=== PATIENT | male | born 1975 | race Caucasian/White ===

== ENCOUNTER 2017-05-08 06:51 | Emergency (ER) | payer OTHER, SELFPAY ==
[2017-05-08 07:30] VITALS: BP 122/78; PULSE 79; RESP 16; TEMP 98.5; O2SAT 98
--- NOTE | 2017-05-08 08:46 | ED PDOC ---
HPI: General Adult Time Seen by Provider: 05/08/17 08:25 Chief Complaint (Nursing): ENT Problem Chief Complaint (Provider): Throat Pain History Per: Patient History/Exam Limitations: no limitations Onset/Duration Of Symptoms: Days (x 2) Current Symptoms Are (Timing): Still Present Additional Complaint(s): 42 year old male who presents to the ED complaining of throat pain, onset 2 days ago. Pain is on swallowing. Patient is concerned it may be cardiac. Denies fever, cough, SOB. PMD: none provided Past Medical History Reviewed: Historical Data, Nursing Documentation, Vital Signs Vital Signs: Last Vital Signs Temp 98.5 F 05/08/17 07:28 Pulse 79 05/08/17 07:28 Resp 16 05/08/17 07:28 BP 122/78 05/08/17 07:28 Pulse Ox 98 05/08/17 09:25 - Medical History PMH: No Chronic Diseases - Surgical History Other surgeries: Lipoma removal - Family History Family History: States: Unknown Family Hx - Social History Ex-Smoker (has not smoked in the last 12 months): Yes Alcohol: Social Drugs: Denies - Immunization History Hx Tetanus Toxoid Vaccination: No - Home Medications Home Medications: Ambulatory Orders Medication Instructions Recorded Naproxen [Naprosyn] 500 mg PO BID #20 tab 07/14/15 No Other Home Meds 07/14/15 tiZANidine [Zanaflex] 4 mg PO Q8H PRN #20 tab 07/14/15 traMADol [Ultram] 50 mg PO TID PRN #15 tab 07/14/15 Azithromycin [Zithromax] 250 mg PO DAILY #6 tab 05/08/17 - Allergies Allergies/Adverse Reactions: Allergies Allergy/AdvReac Type Severity Reaction Status Date / Time No Known Allergies Allergy Verified 05/08/17 07:28 Review of Systems ROS Statement: Except As Marked, All Systems Reviewed And Found Negative Constitutional: Negative for: Fever ENT: Positive for: Throat Pain (on swallowing) Respiratory: Negative for: Cough, Shortness of Breath Physical Exam - Reviewed Nursing Documentation Reviewed: Yes Vital Signs Reviewed: Yes - Physical Exam Appears: Positive for: Non-toxic, No Acute Distress Head Exam: Positive for: ATRAUMATIC, NORMOCEPHALIC Skin: Positive for: Normal Color, Warm, Dry Eye Exam: Positive for: EOMI, Normal appearance, PERRL ENT: Positive for: Pharyngeal Erythema. Negative for: Tonsillar Exudate, Other (deviation of uvula) Cardiovascular/Chest: Positive for: Regular Rate, Rhythm Respiratory: Positive for: Normal Breath Sounds (bilaterally) Gastrointestinal/Abdominal: Positive for: Normal Exam, Soft. Negative for: Tenderness Neurologic/Psych: Positive for: Alert, Oriented - Laboratory Results Result Diagrams: 05/08/17 08:55 - ECG O2 Sat by Pulse Oximetry: 98 (RA) Pulse Ox Interpretation: Normal Medical Decision Making Medical Decision Making: Time: 08:40 Initial Plan: --EKG --CMP --Lipid Panel --Strep group --Throat cx Strep group --results are negative. Scribe Attestation: Documented by Loyda Garrison, acting as a scribe for Gigi Lockhart MD Provider Scribe Attestation: All medical record entries made by the Scribe were at my direction and personally dictated by me. I have reviewed the chart and agree that the record accurately reflects my personal performance of the history, physical exam, medical decision making, and the department course for this patient. I have also personally directed, reviewed, and agree with the discharge instructions and disposition. Disposition - Clinical Impression Clinical Impression: Tonsillitis - Patient ED Disposition Is Patient to be Admitted: No Counseled Patient/Family Regarding: Studies Performed, Diagnosis, Need For Followup, Rx Given - Disposition Referrals: [facility] [Outside] Disposition: Routine/Home Disposition Time: 09:48 Condition: FAIR Prescriptions: Azithromycin [Zithromax] 250 mg PO DAILY #6 tab Instructions: Tonsillitis (ED) Forms: [employer] (Chinese)
[2017-05-08 09:18] LABS: ALB/GLOB RATIO 1.3 (1.0-2.1); ALBUMIN 4.1 g/dL (3.5-5.0); ALT/SGPT 50 U/L (21-72); AST/SGOT 23 U/L (17-59); BLOOD UREA NITROGEN 19 mg/dl (9-20); CALCIUM 8.8 mg/dL (8.4-10.2); GFR AFRICAN-AMERICAN > 60; GFR NON-AFRICAN AMERICAN > 60; HDL CHOLESTEROL 37 MG/DL (30-70)
[2017-05-08 09:29] LABS: LDL CHOLESTEROL 67 mg/dL (0-129)
--- NOTE | 2017-05-09 08:38 | CARD ---
APPROVED REPORT EKG Measurement Heart [id number] <Conclusion> Normal sinus rhythm Normal ECG
== END 2017-05-08 10:07 | disposition home or self-care (01) ==
LOC: H.ER 06:51
DX: J03.90 Acute tonsillitis, unspecified (principal)